=== PATIENT | male | born 1985 | race Two or more races ===

== ENCOUNTER 2017-01-30 13:03 | Emergency (ER) | payer OTHER ==
[2017-01-30 13:11] VITALS: BP 144/59; PULSE 70; RESP 16; TEMP 98.8; O2SAT 97
--- NOTE | 2017-01-30 14:54 | UCPHY ---
H & P Time Seen by Provider: 01/30/17 14:45 Patient Type: New HPI/ROS: CHIEF COMPLAINT: [ ran out of my Symbicort and Proventil inhalers] HISTORY OF PRESENT ILLNESS: [31-year-old male with longstanding asthma. Been asymptomatic from a 7-17. He has been having stable controlled when he was living up in [place]. He now lives down here and has not been able to establish with a new physician as of 4 months ago. He literally ran out of his Symbicort just this morning. This past week feels no untoward symptomatology. No progression of symptoms. He does note that that he ran out of his Proventil. He would like to get back on his Symbicort as it typically flares should he stop that. He reports no flare whatsoever at this point in time. Vis-a-vis no fever or chills or increased cough or increased shortness of breath. Furthermore he is having no nocturnal dyspnea or shortness of breath or need for inhaler He further notes that he typically does not have a particularly bedtime year any particular month. ] REVIEW OF SYSTEMS: Constitutional: No fever, no chills. Respiratory: No cough, shortness of breath, or wheezing. Smoking Status: Never smoked Physical Exam: General Appearance: Alert, no distress. Afebrile. Normal phonation. No respiratory distress. Toe lean thin man. Able to speak in full sentences. No signs respiratory distress or effort Eyes: Pupils equal and round no pallor or injection. No icterus Respiratory: There are no retractions, lungs are clear to auscultation. Cardiovascular: Regular rate and rhythm. Skin: Warm and dry, no rashes. Psychiatric: Normal affect. Constitutional: Initial Vital Signs Temperature (C) 37.1 C 01/30/17 13:08 Heart Rate 70 01/30/17 13:08 Respiratory Rate 16 01/30/17 13:08 Blood Pressure 144/59 H 01/30/17 13:08 O2 Sat (%) 97 01/30/17 13:08 O2 Delivery Mode Room Air Allergies/Adverse Reactions: No Known Allergies Allergy (Unverified 01/30/17 13:11) Home Medications: Medication Instructions Recorded Albuterol [Proventil Inhaler HFA 2 puffs IH QID #1 mdi 01/30/17 (*)] Budesonide/Formoterol 80/4.5 2 puffs IH BID #0 mdi 01/30/17 [Symbicort 80-4.5 Mcg Inhaler] Symbicort 01/30/17 Medical Decision Making ED Course/Re-evaluation: I reviewed the literature regarding the Symbicort similar inhalers with respect to the improved lifestyle with reduced exacerbations but increased mortality. He is informed Differential Diagnosis: Diagnostic considerations include, but are not limited to, the following: Inability established lungs to health care on a timely basis, stable asthma, exacerbation of asthma Departure - Departure Disposition: Home, Routine, Self-Care Clinical Impression: Asthma Qualifiers: Asthma severity: mild intermittent Asthma complication type: uncomplicated Qualified Code(s): J45.20 - Mild intermittent asthma, uncomplicated Condition: Good Instructions: Asthma (ED) Additional Instructions: Fill both the Symbicort and Proventil Referrals: NONE *PRIMARY CARE P,. [Primary Care Provider] - As per Instructions Prescriptions: Albuterol [Proventil Inhaler HFA (*)] 2 puffs IH QID #1 mdi Budesonide/Formoterol 80/4.5 [Symbicort 80-4.5 Mcg Inhaler] 2 puffs IH BID #0 mdi - PQRS PQRS Measurement: NA
== END 2017-01-30 15:05 | disposition home or self-care (01) ==
LOC: CED 13:03
DX: Z76.0 Encounter for issue of repeat prescription (principal); J45.20 Mild intermittent asthma, uncomplicated
CPT/HCPCS: 99203-PO; G0463-PO